=== PATIENT | female | born 1985 | race Caucasian/White ===

== ENCOUNTER 2017-05-09 19:07 | Emergency (ER) | payer BC ==
[~2017-05-09] VITALS: Ht 170.2 cm; Wt 75.3 kg
[2017-05-09 19:25] VITALS: BP_SYST 132
[2017-05-09] MEDS ORDERED: BACITRACIN 1 GM OINT TP ONE (21:00)
[2017-05-09] MEDS ORDERED: DIPH-TET-PERTUS Vaccine 0.5 ML VIAL (ADACEL) IM ONE (21:00)
[2017-05-09 21:25] VITALS: BP_SYST 123
== END 2017-05-09 21:25 | disposition home or self-care (01) ==
LOC: SED 19:07
DX: S61.213A Laceration without foreign body of left middle finger without damage to nail, initial encounter (principal); R03.0 Elevated blood-pressure reading, without diagnosis of hypertension; Z88.8 Allergy status to other drugs, medicaments and biological substances; W45.8XXA Other foreign body or object entering through skin, initial encounter; Y93.89 Activity, other specified; Y92.89 Other specified places as the place of occurrence of the external cause; Y99.8 Other external cause status
CPT/HCPCS: 90715; 99283

== ENCOUNTER 2019-05-19 19:16 | Emergency (ER) | payer BC ==
[~2019-05-19] VITALS: Ht 170.2 cm; Wt 63.5 kg
[2019-05-19 19:20] VITALS: BP_SYST 140
--- NOTE | 2019-05-19 19:31 | NUR ---
Patient to ER bed 4 to gown for evaluation. Side rails up. Report given to Mary Ann BAE.
--- NOTE | 2019-05-19 19:45 | NUR ---
Pt came to ED for constant dysuria for hte past 2 months with frequency over the past week. Reports when she uses the restroom she has very little urination. HX pf kidney stone but was told it was too big to pass. Pain is 5/10. Denies n/v/d or fever. No other complaints/injuries noted.
--- NOTE | 2019-05-19 20:00 | NUR ---
ER at bedside examining patient.
[2019-05-19 20:17] LABS: BILIRUBIN,URINE NEGATIVE (NEGATIVE); BLOOD, URINE 2+ (NEGATIVE); CLARITY/URINE CLEAR (CLEAR); COLOR,URINE YELLOW (YELLOW); GLUCOSE,URINE NEGATIVE (NEGATIVE); KETONES,URINE 1+ (NEGATIVE); LEUKOCYTE ESTERASE ,URINE TRACE (NEGATIVE); NITRITE, URINE NEGATIVE (NEGATIVE); PROTEIN URINE NEGATIVE (NEGATIVE); UROBILINOGEN,URINE 0.2 (0.2-1.0)
[2019-05-19 20:23] LABS: BASOPHILS % (AUTO) 0.8 % (0.0-2.0); EOSINOPHILS # (AUTO) 0.1 K/uL (0.0-0.4); EOSINOPHILS % (AUTO) 1.4 % (0.0-4.0); HEMATOCRIT 44.5 % (36-48); HEMOGLOBIN 15.1 g/dL (12.0-16.0); LYMPHOCYTES % (AUTO) 35.6 % (20.5-51.5); MEAN CORPUSCULAR HEMOGLOBIN 31 pg (27-31); MEAN CORPUSCULAR HGB CONC 34 % (32-36); MEAN CORPUSCULAR VOLUME 92 fL (79.0-98.0); MONOCYTES # (AUTO) 0.3 K/uL (0.0-1.0); MONOCYTES % (AUTO) 5.5 % (1.7-9.3); NEUTROPHILS # (AUTO) 3.2 K/uL (1.8-7.7); NEUTROPHILS % (AUTO) 56.7 % (40.0-70.0); PLATELET COUNT (AUTO) 178 K/uL (130-430); RED BLOOD CELL COUNT(AUTO) 4.83 MIL/uL (4.2-6.2); RED CELL DISTRIBUTION WIDTH 12.2 % (9.0-15.0); WHITE BLOOD COUNT (AUTO) 5.6 K/uL (4.8-10.8)
[2019-05-19 20:28] LABS: CALCIUM 9.2 mg/dL (8.4-11.0); CREATININE 0.58 mg/dL (0.55-1.30); POTASSIUM 3.6 mmol/L (3.5-5.1)
[2019-05-19 20:30] LABS: BACTERIA,URINE FEW /HPF (None Seen); MUCUS,URINE None Seen /LPF (None Seen); RBC,URINE 0-3 /HPF (0-3)
[2019-05-19 20:33] LABS: ALBUMIN 4.1 g/dL (3.4-4.8); TOTAL BILIRUBIN 0.7 mg/dL (0.0-1.0)
[2019-05-19 21:38] VITALS: BP_SYST 140
--- NOTE | 2019-05-19 21:38 | NUR ---
Patient given written and verbal discharge instructions and verbalizes understanding. ER MD Dr. Arthur discussed with patient the results and treatment provided. Patient in stable condition. ID arm band removed. Patient educated on pain management and to follow up with PMD. Pain Scale 0/10. Opportunity for questions provided and answered. Medication side effect fact sheet provided.
== END 2019-05-19 21:38 | disposition home or self-care (01) ==
LOC: SED 19:16
DX: N20.0 Calculus of kidney (principal); Z88.8 Allergy status to other drugs, medicaments and biological substances
CPT/HCPCS: 36415; 76770; 80053; 81000-TC; 81025; 85025; 99284